=== PATIENT | female | born 1950 | race American Indian/Alaskan Native ===

== ENCOUNTER 2019-01-18 05:59 | Inpatient (IN) | payer MEDICARE ==
--- NOTE | 2019-01-16 12:27 | Anesthesia Consultation ---
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
[~2019-01-18 05:59] MED LIST: BUPIVACAINE/PF (0.25%) 2.5 MG/ML 30 ML VIAL INFILTRATI ONE; FAMOTIDINE 20 MG TAB PO NR; KETOROLAC 10 MG TAB PO ONE; LACTATED RINGERS 1,000 ML IV SCH; MORPHINE 10 MG/1 ML INJ IM ONE; OXYCHLOROSENE 2 GM POWDER IR ONE; SODIUM CHLORIDE 0.9% 100 ML IVPB IV ONE; ceFAZolin/STERILE WATER 2 GM/20 ML SYRINGE IV NR
[2019-01-18] MEDS ORDERED: TRANEXAMIC ACID 1,000 MG/10 ML ONE (06:24)
[2019-01-18] MEDS ORDERED: KETOROLAC 30 MG/1 ML INJ ONE (06:24)
[2019-01-18] MEDS ORDERED: BUPIVACAINE/PF (0.25%) 2.5 MG/ML 30 ML VIAL INFILTRATI ONE ×3 (06:24→11:09)
[2019-01-18] MEDS ORDERED: MORPHINE 10 MG/1 ML INJ ONE (06:25)
[2019-01-18] MEDS ORDERED: POLYMYXIN B SULFATE 500,000 UNIT VIAL IV ONE ×2 (06:25→09:40)
[2019-01-18] MEDS ORDERED: SODIUM CHLORIDE 0.9% 500 ML 500 ML ONE (06:25)
[2019-01-18] MEDS ORDERED: SODIUM CHLORIDE 0.9% 50 ML ONE (06:25)
[2019-01-18] MEDS ORDERED: BACITRACIN 50,000 UNIT VIAL ONE (06:26)
[2019-01-18] MEDS ORDERED: OXYCHLOROSENE 2 GM POWDER IR ONE ×2 (06:26→11:00)
[2019-01-18] MEDS ORDERED: BACTERIOSTATIC SODIUM CHLORIDE 0.9% 30 ML VIAL INFILTRATI ONE (06:40)
--- NOTE | 2019-01-18 07:19 | Anesthesia Day of Surgery ---
Anesthesia Day of Surgery - Day of Surgery Patient Examined: Yes Patient H&P Reviewed: Yes Patient is NPO: Yes
[2019-01-18] MEDS ORDERED: fentaNYL 100 MCG/2 ML INJ ONE ×2 (07:37→10:07)
[2019-01-18] MEDS ORDERED: PROPOFOL 200 MG/20 ML VIAL IV ONE (07:37)
[2019-01-18 07:56] LABS: Hematocrit 39.7 % (30.3-42.9); Hemoglobin 13.4 gm/dl (10.1-14.3)
[2019-01-18] MEDS ORDERED: TRANEXAMIC ACID 1,000 MG/10 ML IV ONE (08:32)
[2019-01-18] MEDS ORDERED: MUPIROCIN 2% OINT 22 GM TP ONE (08:35)
[2019-01-18] MEDS ORDERED: MUPIROCIN 2% OINT 22 GM ONE (08:42)
[2019-01-18] MEDS ORDERED: dexAMETHasone 20 MG/5 ML VIAL ONE (08:47)
[2019-01-18] MEDS ORDERED: ONDANSETRON 4 MG/2 ML INJ ONE (08:47)
[2019-01-18] MEDS ORDERED: BACITRACIN 50,000 UNIT VIAL IR ONE (09:40)
[2019-01-18] MEDS ORDERED: SODIUM CHLORIDE 0.9% IRRIG SOLN 2000 ML IR ONE (09:40)
[2019-01-18] MEDS ORDERED: SODIUM CHLORIDE 0.9% 100 ML IVPB IV ONE ×2 (10:55→11:09)
[2019-01-18] MEDS ORDERED: MORPHINE 10 MG/1 ML INJ IM ONE ×2 (10:55→11:09)
[2019-01-18] MEDS ORDERED: KETOROLAC 10 MG TAB PO ONE ×2 (10:55→11:09)
[2019-01-18] MEDS ORDERED: LACTATED RINGERS 1,000 ML ONE (11:24)
[2019-01-18] MEDS ORDERED: PROMETHAZINE 25 MG RECT SUPP PR PRN (11:35)
[2019-01-18] MEDS ORDERED: ONDANSETRON 4 MG/2 ML INJ IV PRN ×2 (11:35→22:08)
[2019-01-18] MEDS ORDERED: MAGNESIUM HYDROXIDE (MOM) ORAL LIQD UDC PO PRN (11:35)
[2019-01-18] MEDS ORDERED: HYDROcodone/ACETAMINOPHEN 7.5-325MG TAB PO PRN (11:39)
[2019-01-18] MEDS ORDERED: KETOROLAC 30 MG/1 ML INJ IV PRN (11:42)
[2019-01-18] MEDS ORDERED: MEPERIDINE 25 MG/1 ML INJ ONE (12:09)
[2019-01-18] MEDS ORDERED: HYDROmorphone 1 MG/1 ML INJ ONE (12:10)
[2019-01-18] MEDS ORDERED: MEPERIDINE 25 MG/1 ML INJ IV PRN (12:23)
[2019-01-18] MEDS ORDERED: HYDROmorphone 1 MG/1 ML INJ IV PRN ×2 (12:24→22:08)
--- NOTE | 2019-01-18 13:08 | XRay Report ---
LEFT KNEE, 2 VIEWS INDICATION: Postop left knee replacement. COMPARISON: None. IMPRESSION: Left knee replacement changes are noted. The hardware appears well applied. No evidence for fracture or bony lesion. Alignment is anatomic. Signer Name: Lawrence Reina Jr, MD Signed: 01/18/2019 1:04 PM Workstation Name: [id number]
--- NOTE | 2019-01-18 14:38 | Operative Report ---
PREOPERATIVE DIAGNOSIS: Severe advanced osteoarthritis, left knee joint. PROCEDURE PERFORMED: 1. Left total knee replacement. 2. Partial synovectomy, left knee joint. POSTOPERATIVE DIAGNOSES: 1. Severe advanced osteoarthritis, left knee joint. 2. Genu varum deformity. 3. Stiffness in the knee. 4. Synovial hypertrophy, synovial proliferation left knee joint. SURGEON: Reji Fortune MD GAME TRAPPER: Pacheco Nicolas, operative tech. IMPLANTS USED: Max Mcclure knee total knee replacement, left side. Femur size E, tibial tray size 4, polyethylene liner posterior stabilized 9 mm, patella 31 mm, 3 post. Cement Palacos R+G. Incision, midline incision. Arthrotomy, medial parapatellar arthrotomy. Medial release, yes. Lateral release, no. Recut, no. Vessel saved, not applicable. Epicondylar angle, 3 degrees. Cement Palacos R+G. BRIEF HISTORY: The patient had a painful arthritic left knee opted for surgical intervention. Risks, benefit discussed. Informed consent obtained, brought to the hospital for the above procedure. DETAILS OF THE OPERATIVE REPORT: The patient was taken to the operating room. After smooth general endotracheal anesthesia, all the bony prominences were carefully padded, placed supine on the operating table. Thigh tourniquet was placed. Left knee and left lower extremity prepped and draped in sterile fashion. Longitudinal incision made over anterior aspect knee, exposing extensive mechanism. Arthrotomy was performed. Patella displaced laterally. Gross finding revealed severe advanced degenerative arthritis with synovial hypertrophic proliferation. Subperiosteal dissection was carried around the proximal medial tibia as necessary. Soft tissue release was performed to correct the fixed angular deformity. Drill was used to open the femoral canal. Distal intramedullary femoral cutting guide was placed. Distal femur resected 5-degree valgus angle. Epicondylar access apex was determined. Femoral sizing guide was placed, appropriate components selected. Anteroposterior condyles were then resected with oscillating saw. Extramedullary tibial cutting guide was placed, proximal tibia resected perpendicular to the long axis of tibia. Lamina spreaders placed between femur and tibia. Arthritic ACL and PCL ligaments were removed. Medial and lateral meniscectomy performed. Gap balancing was done then. With the spacer block alignment cecille, it was checked, was rectangular space in flexion and extension both equal medial and laterally and alignment was checked and found to be acceptable. Tibia was then prepared by tibial reaming broach system by placing the tibial tray in proper position, proper external rotation. Femur was then prepared for the box by using the femoral instrumentation. Trial femur was then placed. Trial liner was then placed in along with the trial tibia. The patella was then prepared by patellar reaming system prepared for three post-patella. Prepatellar thickness 23 mm, post-patellar thickness 23 mm. A trial patella was placed and knee was moved through range of motion. The patella tracked central throughout range of motion. There was no need of lateral release. With 9 poly, we had great stability, full extension, full flexion and stable throughout range of motion. Trial components were removed, thoroughly washed the knee area with antibiotic-soaked normal saline followed by normal saline. The tibia was cemented first set in proper position, proper external rotation and packed in place. Excess cement was removed. Femur was then cemented in proper position, proper external rotation and packed in place. Excess cement was removed. Cementing of the patella was performed, compressed in place. Excess cement removed. Trial liner was then placed. Once the cement was hardened, real tibial articulating surface was implanted and locked in place and the knee was again moved through range of motion and found to be extremely stable. Pain cocktail injected into the periarticular tissue around the knee. The tourniquet released and hemostasis was achieved. No active bleeder as such. A thorough washing was performed with antibiotic-soaked normal saline followed by normal saline and Clorpactin irrigation followed by normal saline plain. Arthrotomy was closed with combination of 0 Vicryl sutures and #2 Quill suture. Subcutaneous tissue closed with 0 and 2-0 Vicryl interrupted sutures. Skin was closed with Monocryl. Aquacel dressing done. The patient tolerated the procedure very well, shifted to recovery room in stable condition. Sponge and needle count was correct. JOB# [id number] SK/NTS
[2019-01-18] MEDS: GABAPENTIN 300 MG CAP PO SCH ×2 (19:51→22:07)
--- NOTE | 2019-01-18 20:20 | Post Anesthesia Evaluation ---
- Post Anesthesia Evaluation Patient Participated: Yes Airway Patent: Yes Stable Respiratory Function: Yes Nausea/Vomiting: No Temp > 96.8F: Yes Pain Manageable: Yes Adequeate Hydration: Yes Anesthesia Complications: No Block Receding Appropriately: Not Applicable Patient on Ventilator: No
[2019-01-18] MEDS: ASPIRIN 325 MG TAB PO SCH (22:07)
[2019-01-18] MEDS: CELECOXIB 200 MG CAP PO SCH (22:07)
[2019-01-18] MEDS ORDERED: oxyCODONE /ACETAMINOPHEN 5-325MG TAB PO PRN (22:08)
[2019-01-18] MEDS ORDERED: ACETAMINOPHEN 325 MG TAB PO PRN (22:08)
[2019-01-18] MEDS ORDERED: SODIUM CHLORIDE 0.9% 1000 ML 1,000 ML IV SCH (23:00)
[2019-01-19] MEDS: GABAPENTIN 300 MG CAP PO SCH ×3 (05:33→22:36)
--- NOTE | 2019-01-19 05:40 | History and Physical Report ---
History of Present Illness Date of examination: 01/18/19 Date of admission: 01/18/19 12:05 Chief complaint: S/p L TKA History of present illness: 68 y/o AAF with no sig PMH except OA had L TKA today by Dr Bynum.Postop doing well.No complaints except some pain at site of surgery which is L knee. Some nausea and one episode of vomiting present. Past History Past Medical History: arthritis Past Surgical History: total knee replacement (Left and L knee meniscus repair) Social history: lives with family, full code Family history: hypertension Medications and Allergies Allergies Allergy/AdvReac Type Severity Reaction Status Date / Time pineapple Allergy DIXON'S Verified 01/15/19 17:42 PALSY Home Medications Medication Instructions Recorded Confirmed Last Taken Type No Known Home Medications [No 01/15/19 01/15/19 Unknown History Reported Home Medications] Active Meds: Active Medications Acetaminophen (Tylenol) 650 mg PO Q4H PRN PRN Reason: Pain MILD(1-3)/Fever >100.5/NG Acetaminophen/Hydrocodone Bitart (Panacea 7.5/325) 1 each PO Q4H PRN PRN Reason: Pain, Moderate (4-6) Aspirin (Aspirin) 325 mg PO BID [facility] Last Admin: 01/18/19 22:07 Dose: 325 mg Documented by: Celecoxib (Celebrex) 200 mg PO BID [facility] Last Admin: 01/18/19 22:07 Dose: 200 mg Documented by: Famotidine (Pepcid) 20 mg PO BID [facility] Gabapentin (Neurontin) 300 mg PO Q8HR [facility] Last Admin: 01/19/19 05:33 Dose: 300 mg Documented by: Hydromorphone HCl (Dilaudid) 1 mg IV Q3H PRN PRN Reason: Pain , Severe (7-10) Lactated Ringer's (Lactated Ringers) 1,000 mls @ 100 mls/hr IV DIRECT LILIYA Cefazolin Sodium 2 gm/ Sodium (Chloride) 100 mls @ 200 mls/hr IV Q8HR [facility] Stop: 01/19/19 06:29 Last Admin: 01/19/19 05:33 Dose: 200 mls/hr Documented by: Sodium Chloride (Nacl 0.9% 1000 Ml) 1,000 mls @ 75 mls/hr IV DIRECT LILIYA Ketorolac Tromethamine (Toradol) 15 mg IV Q6H PRN PRN Reason: Pain, Mild (1-3) Last Admin: 01/18/19 12:30 Dose: 15 mg Documented by: Magnesium Hydroxide (Milk Of Magnesia) 30 ml PO Q4H PRN PRN Reason: Constipation Ondansetron HCl (Zofran) 4 mg IV Q3H PRN PRN Reason: Nausea And Vomiting Oxycodone/Acetaminophen (Percocet 5/325) 1 tab PO Q6H PRN PRN Reason: Pain, Moderate (4-6) Promethazine HCl (Phenergan) 25 mg GA Q6H PRN PRN Reason: Nausea And Vomiting Sodium Chloride (Sodium Chloride Flush Syringe 10 Ml) 10 ml IV BID LILIYA Sodium Chloride (Sodium Chloride Flush Syringe 10 Ml) 10 ml IV PRN PRN PRN Reason: LINE FLUSH Review of Systems All systems: negative Musculoskeletal: other (L knee pain.) Exam - Constitutional Vitals: Temp Pulse Resp BP Pulse Ox 98.4 F 59 L 18 104/64 96 01/19/19 00:26 01/19/19 00:26 01/19/19 00:26 01/19/19 00:26 01/19/19 00:26 General appearance: Present: no acute distress, well-nourished - EENT Eyes: Present: PERRL ENT: hearing intact, clear oral mucosa - Neck Neck: Present: supple, normal ROM - Respiratory Respiratory effort: normal Respiratory: bilateral: CTA - Cardiovascular Heart rate: 76 Rhythm: regular Heart Sounds: Present: S1 & S2. Absent: rub, click - Extremities Extremities: no ischemia, pulses intact, pulses symmetrical, No edema Extremity abnormal: tenderness (L knee and decreased ROM.) Peripheral Pulses: within normal limits - Abdominal General gastrointestinal: Present: soft, non-tender, non-distended, normal bowel sounds Female genitourinary: Present: normal - Integumentary Integumentary: Present: clear, warm, dry - Musculoskeletal Musculoskeletal: gait normal, strength equal bilaterally - Psychiatric Psychiatric: appropriate mood/affect, intact judgment & insight - Neurologic Neurologic: CNII-XII intact, moves all extremities Results - Labs CBC & Chem 7: 01/18/19 06:49 Labs: Laboratory Last Values Hgb 13.4 gm/dl (10.1-14.3) 01/18/19 06:49 Hct 39.7 % (30.3-42.9) 01/18/19 06:49 Blood Type O POSITIVE 01/18/19 06:49 Antibody Screen Negative 01/18/19 06:49 Assessment and Plan Advance Directives: Yes (Full code) VTE prophylaxis?: Mechanical Plan of care discussed with patient/family: Yes - Patient Problems (1) S/P total knee arthroplasty Current Visit: Yes Status: Acute Qualifiers: Laterality: left Qualified Code(s): Z96.652 - Presence of left artificial knee joint Plan to address problem: Post op doing well. PT to continue Pain control to continue (2) Osteoarthritis Current Visit: Yes Status: Chronic Qualifiers: Laterality: bilateral Plan to address problem: Cont Celebrex 200 mg po qd (3) Pain management Current Visit: Yes Status: Acute Plan to address problem: Dilaudid q3 prn IV Discharge on Percocet 5/325 qid prn for one week till she follows up with Dr Bynum (4) DVT prophylaxis Current Visit: Yes Status: Acute Plan to address problem: On SCD's (5) Discharge planning issues Current Visit: Yes Status: Acute Plan to address problem: DIscharge on Tuesday with Home health for PT
[2019-01-19 06:42] LABS: Hematocrit 34.6 % (30.3-42.9); Hemoglobin 11.6 gm/dl (10.1-14.3)
[2019-01-19 06:50] LABS: BUN/Creatinine Ratio 14; Blood Urea Nitrogen 14 mg/dL (7-17); Calcium 8.2 mg/dL (8.4-10.2); Hemolysis Index 11
[2019-01-19] MEDS: FAMOTIDINE 20 MG TAB PO SCH ×2 (09:21→22:36)
[2019-01-19] MEDS: ASPIRIN 325 MG TAB PO SCH ×2 (09:22→22:36)
[2019-01-19] MEDS: CELECOXIB 200 MG CAP PO SCH ×2 (09:22→22:36)
--- NOTE | 2019-01-19 10:53 | Progress Note ---
Assessment and Plan Assessment and plan: - Patient Problems (1) S/P total knee arthroplasty Current Visit: Yes Status: Acute Qualifiers: Laterality: left Qualified Code(s): Z96.652 - Presence of left artificial knee joint Plan to address problem: Post op doing well. PT to continue Pain control to continue (2) Osteoarthritis Current Visit: Yes Status: Chronic Qualifiers: Laterality: bilateral Plan to address problem: Cont Celebrex 200 mg po qd (3) Pain management Current Visit: Yes Status: Acute Plan to address problem: Dilaudid q3 prn IV Discharge on Percocet 5/325 qid prn for one week till she follows up with Dr Bynum (4) DVT prophylaxis Current Visit: Yes Status: Acute Plan to address problem: On SCD's (5) Discharge planning issues Current Visit: Yes Status: Acute Plan to address problem: DIscharge on Tuesday with Home health for PT Discussed with case management; PT will see the patient History Interval history: Patient was seen and evaluated this morning, patient has mild pain at the site of surgery otherwise no complaints. Hospitalist Physical - Physical exam Narrative exam: Not in cardiopulmonary distress. The patient appeared well nourished and normally developed. Vital signs as documented. Head exam is unremarkable. No scleral icterus . Neck is without jugular venous distension, thyromegaly, or carotid bruits. Lungs are clear to auscultation. Cardiac exam reveals regular rate and Rhythm. Abdominal exam reveals normal bowel sounds, no masses, no organomegaly and no aortic enlargement. Extremities are nonedematous and both femoral and pedal pulses are normal. SUPERVISOR WRAPPING ROOM: Alert and oriented 3. No focal weakness. - Constitutional Vitals: Temp Pulse Resp BP Pulse Ox 97.5 F L 60 18 97/62 97 01/19/19 07:10 01/19/19 07:10 01/19/19 07:10 01/19/19 07:10 01/19/19 09:21 General appearance: Present: no acute distress, well-nourished Results - Labs CBC & Chem 7: 01/19/19 06:18 01/19/19 06:18 Labs: Laboratory Last Values Hgb 11.6 gm/dl (10.1-14.3) 01/19/19 06:18 Hct 34.6 % (30.3-42.9) 01/19/19 06:18 Sodium 139 mmol/L (137-145) 01/19/19 06:18 Potassium 4.3 mmol/L (3.6-5.0) 01/19/19 06:18 Chloride 106.2 mmol/L (98-107) 01/19/19 06:18 Carbon Dioxide 25 mmol/L (22-30) 01/19/19 06:18 Anion Gap 12 mmol/L 01/19/19 06:18 BUN 14 mg/dL (7-17) 01/19/19 06:18 Creatinine 1.0 mg/dL (0.7-1.2) 01/19/19 06:18 Estimated GFR > 60 ml/min 01/19/19 06:18 BUN/Creatinine Ratio 14 % 01/19/19 06:18 Glucose 125 mg/dL (65-100) H 01/19/19 06:18 Calcium 8.2 mg/dL (8.4-10.2) L 01/19/19 06:18 Blood Type O POSITIVE 01/18/19 06:49 Antibody Screen Negative 01/18/19 06:49 Active Medications - Current Medications Current Medications: Generic Name Dose Route Start Last Admin Trade Name Freq PRN Reason Stop Dose Admin Acetaminophen 650 mg 01/18/19 22:08 Tylenol PO Q4H PRN Pain MILD(1-3)/Fever >100.5/NG Acetaminophen/Hydrocodone Bitart 1 each 01/18/19 11:39 [place] 7.5/325 PO Q4H PRN Pain, Moderate (4-6) Aspirin 325 mg 01/18/19 22:00 01/19/19 09:22 Aspirin PO 325 mg BID LILIYA Administration Celecoxib 200 mg 01/18/19 22:00 01/19/19 09:22 Celebrex PO 200 mg BID LILIYA Administration Famotidine 20 mg 01/19/19 10:00 01/19/19 09:21 Pepcid PO 20 mg BID LILIYA Administration Gabapentin 300 mg 01/18/19 14:00 01/19/19 05:33 Neurontin PO 300 mg Q8HR LILIYA Administration Hydromorphone HCl 1 mg 01/18/19 22:08 01/19/19 05:46 Dilaudid IV 1 mg Q3H PRN Administration Pain , Severe (7-10) Lactated Ringer's 1,000 mls @ 100 mls/hr 01/16/19 13:00 Lactated Ringers IV DIRECT LILIYA Sodium Chloride 1,000 mls @ 75 mls/hr 01/18/19 23:00 Nacl 0.9% 1000 Ml IV DIRECT LILIYA Ketorolac Tromethamine 15 mg 01/18/19 11:42 01/18/19 12:30 Toradol IV 15 mg Q6H PRN Administration Pain, Mild (1-3) Magnesium Hydroxide 30 ml 01/18/19 11:35 Milk Of Magnesia PO Q4H PRN Constipation Ondansetron HCl 4 mg 01/18/19 22:08 01/19/19 05:47 Zofran IV 4 mg Q3H PRN Administration Nausea And Vomiting Oxycodone/Acetaminophen 1 tab 01/18/19 22:08 Percocet 5/325 PO Q6H PRN Pain, Moderate (4-6) Promethazine HCl 25 mg 01/18/19 11:35 Phenergan PA Q6H PRN Nausea And Vomiting Sodium Chloride 10 ml 01/19/19 10:00 01/19/19 09:22 Sodium Chloride Flush Syringe 10 Ml IV 10 ml BID LILIYA Administration Sodium Chloride 10 ml 01/18/19 22:08 Sodium Chloride Flush Syringe 10 Ml IV PRN PRN LINE FLUSH
--- NOTE | 2019-01-19 15:03 | Progress Note ---
Subjective Date of service: 01/19/19 Interval history: pod1, s/p TKA left side AVSS, DOING WELL. PAIN UNDER CONTROL DRESSING DRY Calf soft NT NVI Doing well with PT DC plan Home with HH nurse and PT visit DME equipment for home. DC once clear by medicine and PT and once HH arrangements are made. Objective Vital signs: Vital Signs - 12hr 01/19/19 01/19/19 01/19/19 05:02 07:10 09:21 Temperature 98.1 F 97.5 F L Pulse Rate 68 60 Respiratory 18 18 Rate Blood Pressure 98/55 97/62 Blood Pressure [Right] O2 Sat by Pulse 95 94 97 Oximetry 01/19/19 13:04 Temperature 97.5 F L Pulse Rate 47 L Respiratory 18 Rate Blood Pressure Blood Pressure 95/53 [Right] O2 Sat by Pulse 99 Oximetry - Labs CBC & BMP: 01/19/19 06:18 01/19/19 06:18 Labs: Abnormal lab results 01/19/19 Range/Units 06:18 Glucose 125 H (65-100) mg/dL Calcium 8.2 L (8.4-10.2) mg/dL
[2019-01-20] MEDS: GABAPENTIN 300 MG CAP PO SCH ×2 (06:20→15:01)
--- NOTE | 2019-01-20 08:44 | Discharge Summary ---
Providers - Providers Date of Admission: 01/18/19 12:05 Date of discharge: 01/20/19 Attending physician: SELAM GOODEN MD 01/18/19 11:35 Consult to Case Management [CONS] Routine Services Needed at Discharge: Home Health Services Manager Case Management DME Equipment Physical Therapy Occupational Therapy Notified:: cm notified Consult to Physician [CONS] Routine Comment: Consulting Provider: TORREY ESCOBAR Physician Instructions: Reason For Exam: postop and medical management Occupational Therapy Evaluate and Treat [CONS] Routine Comment: Reason For Exam: POSTOP TKA LEFT 01/18/19 11:37 Physical Therapy Evaluation and Treat [CONS] Routine Comment: Reason For Exam: postop TKA LEFT 01/18/19 12:09 Consult to Physician [CONS] Routine Comment: Consulting Provider: CARLEE DELEON Physician Instructions: Reason For Exam: ATHRITIS LT. KNEE, LT. KNEE REPLACEMENT Primary care physician: AMANDA WINTERS Hospitalization Reason for admission: S/P left knee arthroplasty Condition: Good Hospital course: 68 y/o AAF with no sig PMH except OA had L TKA by Dr Bynum. Postop doing well. No complaints except some pain at site of surgery which is L knee. Patient was seen by PT and recommended home health and discharged home with home health. patient 's appropriate medications were given at the time of discharge. patient was hemodynamically stable at the time of DC. Disposition: [id number] HOME UNDER HOME HLTH - Discharge Diagnoses (1) S/P total knee arthroplasty Status: Acute Qualifiers: Laterality: left Qualified Code(s): Z96.652 - Presence of left artificial knee joint (2) Osteoarthritis Status: Chronic Qualifiers: Laterality: bilateral Core Measure Documentation - Palliative Care Palliative Care/ Comfort Measures: Not Applicable - Core Measures Any of the following diagnoses?: none Exam - Physical Exam Narrative exam: Not in cardiopulmonary distress. The patient appeared well nourished and normally developed. Vital signs as documented. Head exam is unremarkable. No scleral icterus . Neck is without jugular venous distension, thyromegaly, or carotid bruits. Lungs are clear to auscultation. Cardiac exam reveals regular rate and Rhythm. Abdominal exam reveals normal bowel sounds, no masses, no organomegaly and no aortic enlargement. Extremities are nonedematous and both femoral and pedal pulses are normal. MILIEU MANAGER: Alert and oriented 3. No focal weakness. - Constitutional Vitals: Temp Pulse Resp BP Pulse Ox 97.6 F 69 16 85/45 96 01/20/19 06:59 01/20/19 06:59 01/20/19 06:59 01/20/19 06:59 01/20/19 06:59 Plan Activity: advance as tolerated Weight Bearing Status: Weight Bear as Tolerated Diet: regular Follow up with: AMANDA WINTERS MD [Primary Care Provider] - 7 Days Prescriptions: Aspirin 325 mg PO BID #28 tablet Celecoxib [celeBREX] 200 mg PO BID #20 capsule HYDROcodone/APAP 7.5-325 [Grant 7.5-325 mg TAB] 1 each PO Q4H PRN #14 tablet PRN Reason: Pain, Moderate (4-6)
[2019-01-20] MEDS: CELECOXIB 200 MG CAP PO SCH (09:44)
[2019-01-20] MEDS: FAMOTIDINE 20 MG TAB PO SCH (09:44)
[2019-01-20] MEDS: ASPIRIN 325 MG TAB PO SCH (09:45)
[2019-01-20 12:20] VITALS: BP 111/60
== END 2019-01-20 17:30 | disposition home health service (06) | DRG 470 ==
LOC: OR 05:59 → EDSTATUS 07:30 → EDBD 07:30 → 3A 12:05 → 3B-SURG 12:36
PROVIDERS: ADMIT Internal Medicine; ATTEND Internal Medicine
PROC: 0SRD0J9 Replacement of Left Knee Joint with Synthetic Substitute, Cemented, Open Approach (ICD-10-PCS; principal; 2019-01-18)
DX: M17.12 Unilateral primary osteoarthritis, left knee (principal); N18.9 Chronic kidney disease, unspecified; M79.7 Fibromyalgia; G47.33 Obstructive sleep apnea (adult) (pediatric); G51.0 Bell's palsy; M67.262 Synovial hypertrophy, not elsewhere classified, left lower leg; M21.162 Varus deformity, not elsewhere classified, left knee; Z86.73 Personal history of transient ischemic attack (TIA), and cerebral infarction without residual deficits; Z82.49 Family history of ischemic heart disease and other diseases of the circulatory system; Z91.018 Allergy to other foods
CPT/HCPCS: 36415; 80048; 85014; 85018; 86850; 86900; 86901; 87116; 88304; 88305; 88311; G0378; A4217; C1713; C1776; J0690; J1100; J1170; J1885; J2175; J2270; J2405; J2704; J3010; J7040; J7120